=== PATIENT | male | born 1985 | race Caucasian/White ===

== ENCOUNTER 2018-11-27 08:21 | Emergency (ER) | payer BC ==
[2018-11-27 08:50] LABS: #Basophils 0.1 thou/uL (0.0-0.2); #Eosinphils 0.2 thou/uL (0.0-0.7); #Lymphocytes 3.7 thou/uL (1.20-3.40); #Monocytes 0.6 thou/uL (0.11-0.59); #Neutrophils 4.5 thou/uL (1.40-6.50); %Eosinophils 2.1 % (0.0-10.0); %Lymphocytes 40.5 % (21.0-51.0); %Monocytes 6.8 % (0.0-10.0); %Neutrophils 49.7 % (42.0-75.0); Hemoglobin 14.2 g/dL (14.0-18.0); Mean Corpuscular HGB CONC 34.2 g/dL (32.0-36.0); Mean Corpuscular Hemoglobin 30.5 pg (27.0-31.0); Mean Corpuscular Volume 89.3 fL (78.0-98.0); Mean Platelet Volume 7.6 fL (7.4-10.4); Platelet Count 319 thou/uL (130-400); RBC Distribution Width 12.5 % (11.5-14.5); Red Blood Cell (RBC) Count 4.66 mill/uL (4.70-6.10); White Blood Cell (WBC) Count 9.1 thou/uL (4.8-10.8)
--- NOTE | 2018-11-27 08:58 | CT ---
NONCONTRAST CT HEAD: DATE: 11/27/2018. HISTORY: Seizure-like activity post drug use. COMPARISON: None available. FINDINGS: There is no evidence of a hemorrhage, acute infarction, mass effect, or midline shift. The ventricul ar system is normal in size, shape, and position. There is mild mucosal thickening present within he left maxillary antrum. Mastoid air cells are clear. Calvarial structures are intact. IMPRESSION: 1. No acute intracranial abnormality is demonstrated. 2. Mild sinus disease. POS: [facility]
[2018-11-27 09:08] LABS: Acetaminophen Less than 6.0 mcg/mL (10.0-30.0); Alcohol Less than 10 mg/dL (Less than 10); Salicylate Less than 8.0 mg/dL (15.0-30.0)
[2018-11-27 09:09] LABS: ALT (SGPT) 122 U/L (8-55); AST (SGOT) 46 U/L (5-34); Albumin 4.7 g/dL (3.5-5.0); Alkaline Phosphatase 77 U/L (40-150); Anion Gap 17 mmol/L (10-20); BUN (Urea Nitrogen) 10 mg/dL (8.9-20.6); Bilirubin, Total 0.4 mg/dL (0.2-1.2); Calc. Creatinine Clearance 0 mL/min (70-130); Calcium 9.9 mg/dL (7.8-10.44); Carbon Dioxide 18 mmol/L (22-29); Chloride 106 mmol/L (98-107); Estimated GFR-MDRD Greater than 90; Glucose 157 mg/dL (70-105); Potassium 4.2 mmol/L (3.5-5.1); Protein, Total 7.7 g/dL (6.0-8.3); Sodium 137 mmol/L (136-145)
[2018-11-27] MEDS ORDERED: diphenhydrAMINE 50 MG/ML VIAL ONE (09:59)
[2018-11-27] MEDS ORDERED: Metoclopramide HCl 10 MG/2 ML VIAL ONE (09:59)
[2018-11-27 10:33] LABS: Amphetamine Not Detected (NotDetected); Barbiturates Screen Not Detected (NotDetected); Benzodiazepine Screen Not Detected (NotDetected); Cocaine Metabolite Screen Not Detected (NotDetected); Medtox Control Line Valid? VALID (VALID); Medtox Reader # READER 4; Methadone Not Detected (NotDetected); Methamphetamine Not Detected (NotDetected); Opiate Screen Not Detected (NotDetected); Oxycodone Screen Not Detected (NotDetected); Phencyclidine (PCP) Not Detected (NotDetected); THC/Cannabinoid Screen Detected (NotDetected); Tricyclic Screen Not Detected (NotDetected)
== END 2018-11-27 11:18 | disposition home or self-care (01) ==
LOC: ERS 08:21
DX: R56.9 Unspecified convulsions (principal)
CPT/HCPCS: 36415; 70450; 80053; 80306; 80307; 84146; 85025; 87804; 93005; 96365; 96375; J1200; J2765

== ENCOUNTER 2018-12-03 14:39 | Outpatient (CLI) | payer BC ==
--- NOTE | 2018-12-03 16:00 | RAD ---
2 VIEWS OF CHEST: Date: 12/03/18 COMPARISON: None. HISTORY: Mid sternal chest pain and fatigue. FINDINGS: Two views of the chest show normal sized cardiomediastinal silhouette. There is no evidence of consol idation, mass, or pleural effusion. The bones are unremarkable. IMPRESSION: No evidence of acute cardiopulmonary disease. POS: [facility]
--- NOTE | 2018-12-03 16:03 | RAD ---
3 VIEWS PARANASAL SINUSES: Date: 12/03/18 COMPARISON: None. HISTORY: Congestion, sinus pressure. FINDINGS: The frontal sinuses, maxillary sinuses, sphenoid sinuses, ethmoid air cells, and mastoid air cells ap pear unremarkable. No significant paranasal sinus disease. IMPRESSION: Unremarkable 3 view examination of the paranasal sinuses. POS: [facility]
--- NOTE | 2018-12-03 16:04 | RAD ---
SINGLE VIEW ABDOMEN: Date: 12/03/18 COMPARISON: None. HISTORY: Hematuria. Possible kidney stones. FINDINGS: Single view of the abdomen shows a nonspecific, nonobstructed bowel gas pattern. No suspicious calcif ications are seen projecting over either renal shadow or along the course of the ureters. IMPRESSION: Unremarkable exam. POS: [facility]
--- NOTE | 2018-12-03 16:05 | RAD ---
2 VIEWS LUMBAR SPINE: Date: 12/03/18 HISTORY: Low back pain. FINDINGS: Five lumbar-type vertebral bodies are present with intact pedicles on frontal imaging. The lateral im aging demonstrates normal vertebral body height and alignment. No acute osseous abnormality. IMPRESSION: No acute findings. POS: [facility]
== END 2018-12-03 14:40 | disposition home or self-care (01) ==
LOC: BICRAD 14:39
PROVIDERS: ATTEND Family Medicine
DX: R31.9 Hematuria, unspecified (principal); R53.0 Neoplastic (malignant) related fatigue
CPT/HCPCS: 70220; 71046; 72100; 74018

== ENCOUNTER 2018-12-09 06:56 | Outpatient (CLI) | payer BC ==
--- NOTE | 2018-12-09 08:07 | ULT ---
SONOGRAM ABDOMEN COMPLETE: Date: 12/09/18 HISTORY: Upper abdomen pain. Hematuria. FINDINGS: Gallbladder has a normal appearance without stones. Common duct is 0.3 cm. Liver unremarkable without focal mass or intrahepatic biliary dilatation. No free fluid. The spleen, kidneys, and visualized po rtions of the abdominal aorta, IVC, and pancreas are unremarkable. IMPRESSION: Normal abdominal sonogram. POS: [facility]
== END 2018-12-09 06:57 | disposition home or self-care (01) ==
LOC: BICULT 06:56
PROVIDERS: ATTEND Family Medicine
DX: R31.9 Hematuria, unspecified (principal)
CPT/HCPCS: 76700

== ENCOUNTER 2019-02-06 08:02 | Outpatient (CLI) | payer BC ==
--- NOTE | 2019-02-06 11:28 | MRI ---
MRI BRAIN WITH AND WITHOUT IV CONTRAST: Date: 02/06/19 HISTORY: Epilepsy. FINDINGS: No evidence of infarct, hemorrhage, mass, midline shift, or abnormal extra-axial fluid collections ar e seen. The ventricular size is normal and the basilar cisterns are patent. No abnormal postcontrast enhancement is noted. No restricted diffusion is seen. No signal abnormalities are noted on the highl y sensitive FLAIR images. There is mild mucosal disease in the paranasal sinuses. IMPRESSION: Normal exam. POS: [facility]
[2019-02-06] MEDS ORDERED: Gadobenate Dimeglumine 529 MG/1 ML (20ML VIAL) ONE (12:48)
== END 2019-02-06 08:03 | disposition home or self-care (01) ==
LOC: BICMRI 08:02
PROVIDERS: ATTEND Psychiatry & Neurology Neurology
DX: G40.409 Other generalized epilepsy and epileptic syndromes, not intractable, without status epilepticus (principal)
CPT/HCPCS: 70553; A9577